=== PATIENT | female | born 1995 | race Asian ===

== ENCOUNTER 2019-06-13 07:51 | Emergency (ER) | payer BC ==
[2019-06-13 08:24] VITALS: BP 129/81
--- NOTE | 2019-06-13 08:47 | UC ---
UC General HPI - HPI Summary HPI Summary: "I have a uti". last pm, pt had "cramping" around her belly button then a short time later she developed blood and mucous in her urine. she now has the frequency, urgency and burning with urination which is typical of prior uti's. she called her father who is an church organist. he prescribed the cipro 500mg 2 x's daily x 5 days. she has had 2 doses plus took a pyridium. they just wanted her checked because the cramping was new. no fever, chills, n/v/d. no flank pain or risk/concern for pelvic infection. - History of Current Complaint Chief Complaint: UCGU Stated Complaint: URINARY Time Seen by Provider: 06/13/19 08:34 Hx Obtained From: Patient Hx Last Menstrual Period: 06/08/19 Onset/Duration: Gradual Onset Timing: Constant Pain Intensity: 1 Alleviating: improving with the cipro - Allergy/Home Medications Allergies/Adverse Reactions: Allergies Allergy/AdvReac Type Severity Reaction Status Date / Time No Known Allergies Allergy Verified 06/13/19 08:17 Home Medications: Home Medications Ciprofloxacin TAB* [Cipro 500 MG TAB*] 500 mg PO BID 06/13/19 [History Confirmed 06/13/19] Phenazopyridine HCl [Urinary Pain Relief] 2 tab PO TID MDD pain 06/13/19 [ History Confirmed 06/13/19] PMH/Surg Hx/FS Hx/Imm Hx - Additional Past Medical History Additional PMH: uti x 2 - Surgical History Surgical History: None - Family History Known Family History: Positive: Non-Contributory - Social History Alcohol Use: Occasionally Substance Use Type: None Smoking Status (MU): Never Smoked Tobacco Review of Systems All Other Systems Reviewed And Are Negative: No Constitutional: Negative: Fever, Chills Gastrointestinal: Negative: Abdominal Pain, Vomiting, Diarrhea, Nausea Physical Exam Triage Information Reviewed: Yes Appearance: Well-Appearing Vital Signs: Initial Vital Signs Temp 98 F 06/13/19 08:19 Pulse 75 06/13/19 08:19 Resp 16 06/13/19 08:19 BP 129/81 06/13/19 08:19 Pulse Ox 100 06/13/19 08:19 Vital Signs Reviewed: Yes Eyes: Positive: Conjunctiva Clear ENT: Positive: Normal ENT inspection Neck: Positive: Supple Respiratory: Positive: Lungs clear, Normal breath sounds Cardiovascular: Positive: RRR, No Murmur Abdomen Description: Positive: Nontender, No Organomegaly, Soft. Negative: CVA Tenderness (R), CVA Tenderness (L), Distended, Guarding Bowel Sounds: Positive: Present Neurological: Positive: Alert Psychological: Positive: Age Appropriate Behavior Skin Exam: Normal Course/Dx - Course Course Of Treatment: pt refusing urine test. - Differential Dx - Multi-Symptom Differential Diagnoses: Other - non toxic. no acute abdomen. test refused citing not . no u/a, on pyridium. urine culture is pending. pt to complete the Cipro 500mg BID x 5 day as directed by her father who is an church organist. - Diagnoses Provider Diagnosis: Dysuria Discharge ED - Sign-Out/Discharge Documenting (check all that apply): Patient Departure All imaging exams completed and their final reports reviewed: No Studies - Discharge Plan Condition: Stable Disposition: HOME Patient Education Materials: Dysuria (ED) Referrals: Zeke Gupta MD [Medical Doctor] - Additional Instructions: FOLLOW UP IF NOT BETTER IN 5-7 DAYS. GO TO THE ER FOR ANY WORSENING. CONTINUE THE CIPRO 500MG 2X'DAILY FOR A TOTAL OF 5 DAYS. - Billing Disposition and Condition Condition: STABLE Disposition: Home
--- NOTE | 2019-06-16 07:23 | UC ---
- Progress Note Progress Note: please call the pt. with her urine culture results + E. coli resistance to cipro pt. has been on cipo for 5 days no change if she is asymptomatic now will call in a different antibiotics if she is not improving Course/Dx - Diagnoses Provider Diagnoses: Dysuria Discharge ED - Sign-Out/Discharge Documenting (check all that apply): Patient Departure All imaging exams completed and their final reports reviewed: No Studies - Discharge Plan Condition: Stable Disposition: HOME Patient Education Materials: Dysuria (ED) Referrals: Zeke Gupta MD [Medical Doctor] - Additional Instructions: FOLLOW UP IF NOT BETTER IN 5-7 DAYS. GO TO THE ER FOR ANY WORSENING. CONTINUE THE CIPRO 500MG 2X'DAILY FOR A TOTAL OF 5 DAYS. - Billing Disposition and Condition Condition: STABLE Disposition: Home
== END 2019-06-13 09:00 | disposition home or self-care (01) ==
LOC: UCCORT 07:51
DX: R30.0 Dysuria (principal); Z87.440 Personal history of urinary (tract) infections
CPT/HCPCS: 87077; 87086; 87186; 99201; G0463